=== PATIENT | female | born 1950 | race Caucasian/White ===

== ENCOUNTER 2016-11-29 15:12 | Emergency (ER) | payer MEDICARE, OTHER ==
[~2016-11-29] VITALS: Ht 162.6 cm; Wt 86.2 kg
[2016-11-29] MEDS ORDERED: KETOROLAC TROMETH 60MG/2ML VIAL IM ONE (16:30)
[2016-11-29] MEDS ORDERED: HYDROcodone-ACET 7.5/325MG TAB PO ONE (16:30)
[2016-11-29 18:13] VITALS: BP 148/75
[2016-11-29] MEDS ORDERED: PROMETHAZINE HCL 25 MG/ML 1ML IM ONE (18:15)
[2016-11-29] MEDS ORDERED: MORPHINE SULFATE 10 MG/ML INJ 1ML SDV IM ONE (18:15)
== END 2016-11-29 19:11 | disposition home or self-care (01) ==
LOC: EDBD 15:19 → ER 15:19
DX: S82.142A Displaced bicondylar fracture of left tibia, initial encounter for closed fracture (principal); Z88.2 Allergy status to sulfonamides; I10 Essential (primary) hypertension; W01.0XXA Fall on same level from slipping, tripping and stumbling without subsequent striking against object, initial encounter; Y93.89 Activity, other specified; Y92.513 Shop (commercial) as the place of occurrence of the external cause; Y99.8 Other external cause status
CPT/HCPCS: 29505; 73562; 73700; 96372; 99284; J2270; J2550